=== PATIENT | female | born 1990 | race African-American/Black ===

== ENCOUNTER 2019-06-04 01:41 | Emergency (ER) | payer MEDICAID ==
[~2019-06-04] VITALS: Ht 172.7 cm; Wt 82.0 kg
[~2019-06-04 01:41] MED LIST: ALBUTEROL INHALER
[2019-06-04] MEDS ORDERED: TETANUS, DIPHTHERIA, PERTUSSIS VAC/PF 0.5ML (>7YR OLD) IM ONE (02:30)
[2019-06-04] MEDS ORDERED: ACETAMINOPHEN 325MG TABLET PO ONE (02:30)
[2019-06-04 04:40] VITALS: BP 123/82
== END 2019-06-04 04:42 | disposition home or self-care (01) ==
LOC: ER 01:41
DX: S00.01XA Abrasion of scalp, initial encounter (principal); S20.419A Abrasion of unspecified back wall of thorax, initial encounter; S40.812A Abrasion of left upper arm, initial encounter; S40.811A Abrasion of right upper arm, initial encounter; J45.909 Unspecified asthma, uncomplicated; F17.210 Nicotine dependence, cigarettes, uncomplicated; Y04.0XXA Assault by unarmed brawl or fight, initial encounter; Y93.89 Activity, other specified; Y92.810 Car as the place of occurrence of the external cause
CPT/HCPCS: 90471; 90715; 99284